=== PATIENT | female | born 1940 | race Caucasian/White ===

== ENCOUNTER 2018-03-17 07:16 | Day surgery (SDC) | payer MEDICARE, OTHER ==
[~2018-03-17 07:16] MED LIST: Midazolam 1 MG/ML 2 ML SDV ONE; fentaNYL 100 MCG/2 ML SDV ONE
[2018-03-17] MEDS ORDERED: Midazolam 1 MG/ML 2 ML SDV IV ONE ×5 (07:17→08:50)
[2018-03-17] MEDS ORDERED: fentaNYL 100 MCG/2 ML SDV IV ONE ×3 (07:17→08:43)
[2018-03-17] MEDS ORDERED: Dextrose 5%-0.45% NaCl 1,000 ML IV SCH (08:00)
--- NOTE | 2018-03-17 09:37 | OR ---
DATE: 03/17/2018 PROCEDURES: Total colonoscopy, narrow-band imaging, and multiple cold snare polypectomies. INSTRUMENT USED: PCF-H180 AL Olympus video colonoscope. PREMEDICATIONS: Fentanyl 100 mcg intravenous, Versed 3 mg intravenous. Nasal O2 cannula. The procedure was done under pulse oximetry, BP recording, and diagnostic cardiac sonographer. INDICATION: The patient with previous colonic polyps and recent rectal bleeding. Colonoscopic examination is done for detection of any polypoid lesions and removal, endoscopic hemostasis therapy if needed. DESCRIPTION OF PROCEDURE: Initial rectal exam showed external hemorrhoidal tags. Rigid anoscopy was normal. The colonoscope was passed with ease. Numerous scattered diverticula were noted in the distal left colon along with deformity. The scope was passed with ease up to the ileocecal area. Photographs were taken of the cecum showing 3-mm sized benign-appearing polyp. NBI views were obtained. Cold snare polypectomy was done. The tissue was retrieved and sent for histopathology. No bleeding was noted from any of the visualized areas at the commencement of the examination. No stricture. No vascular ectasia. No large isolated ulcerations seen. No evidence of diffuse inflammatory bowel disease in the form of friability, contact bleeding, or ulcerations. Probing the proximal sides of folds and flexures, using adequate distention and clearing up the stool material, withdrawal of the scope was made. In the distal ascending colon, multiple 3-mm sized polyps, three in number, were noted. Cold snare polypectomies were done. The tissues were retrieved and sent for histopathology. No bleeding was noted from any of the visualized areas at the completion of examination. IMPRESSION: 1. External hemorrhoids. 2. Diverticulosis. 3. Multiple colonic polyps. The patient tolerated the procedure well. [facility] /[id number]
== END 2018-03-17 11:15 | disposition home or self-care (01) ==
LOC: DL.ENDO 07:16
PROVIDERS: ATTEND Internal Medicine Gastroenterology
DX: D12.0 Benign neoplasm of cecum (principal); D12.4 Benign neoplasm of descending colon; K64.4 Residual hemorrhoidal skin tags; K57.30 Diverticulosis of large intestine without perforation or abscess without bleeding; I10 Essential (primary) hypertension; I25.10 Atherosclerotic heart disease of native coronary artery without angina pectoris; E11.9 Type 2 diabetes mellitus without complications; E78.5 Hyperlipidemia, unspecified; E66.09 Other obesity due to excess calories; Z86.010 Personal history of colon polyps
CPT/HCPCS: 45385; J2250; J3010; J7042; 88305

== ENCOUNTER 2022-03-24 13:13 | Inpatient (IN) | payer MEDICARE, OTHER ==
[2022-03-24] MEDS: Sodium Chloride 0.9% 10 ML Syringe FLUSH PRN (13:56)
[2022-03-24 14:26] LABS: ANION GAP 15.2 mEq/L (7-13); CHLORIDE,CL 103 mmol/L (98-107); SODIUM,NA 141 mmol/L (136-145)
[2022-03-24] MEDS ORDERED: Iopamidol 612 MG/ML 100 ML Bottle IVPUSH ONE (14:39)
[2022-03-24] MEDS ORDERED: cefTRIAXone 2 GM in Sodium Chloride 0.9% 100 ML IV ONE (15:40)
[2022-03-24] MEDS ORDERED: Dexamethasone 4 MG/ML SDV IVPUSH ONE (17:16)
[2022-03-24] MEDS ORDERED: Ibuprofen 400 MG Tab PO PRN (19:37)
[2022-03-24] MEDS ORDERED: Zolpidem 5 MG Tab PO PRN (19:37)
[2022-03-24] MEDS ORDERED: HYDROmorphone 0.5 MG/0.5 ML Syringe IVPUSH PRN (19:37)
[2022-03-24] MEDS ORDERED: Polyethylene Glycol 3350 Powder 17 GM Packet PO PRN (19:37)
[2022-03-24] MEDS ORDERED: Ketorolac 30 MG/ML SDV IVPUSH PRN (19:37)
[2022-03-24] MEDS ORDERED: Ondansetron 4 MG/2 ML SDV IVPUSH PRN (19:37)
[2022-03-24] MEDS ORDERED: Magnesium Hydroxide 400 MG/5 ML Susp 30 ML Cup PO PRN (19:37)
[2022-03-24] MEDS ORDERED: Albuterol/Ipratropium 3.0-0.5 MG/3 ML Neb Soln NEB PRN (19:37)
[2022-03-24] MEDS ORDERED: Bisacodyl 5 MG Tab PO PRN (19:37)
[2022-03-24] MEDS ORDERED: Docusate Sodium 100 MG Cap PO PRN (19:37)
[2022-03-24] MEDS ORDERED: metroNIDAZOLE/Normal Saline 500 MG in Premix Bag 100 BAG IV SCH (20:00)
[2022-03-24] MEDS: Dextrose 5%-0.9% NaCl 1,000 ML IV SCH (21:13)
[2022-03-24] MEDS: Saccharomyces Boulardii (Probiotic) 250 MG Cap PO SCH (21:20)
[2022-03-24] MEDS ORDERED: Escitalopram 10 MG Tab PO SCH (21:35)
[2022-03-25] MEDS: metroNIDAZOLE/Normal Saline 500 MG in Premix Bag 1 BAG IV SCH ×3 (06:04→22:02)
[2022-03-25 07:13] LABS: ANION GAP 15.2 mEq/L (7-13); CHLORIDE,CL 106 mmol/L (98-107); SODIUM,NA 142 mmol/L (136-145)
[2022-03-25] MEDS ORDERED: Benzocaine 20% Topical Spray UD MUCMEM PRN (09:05)
[2022-03-25] MEDS: Dexamethasone 4 MG/ML SDV IVPUSH SCH ×3 (09:53→23:14)
[2022-03-25] MEDS: Dextrose 5%-0.9% NaCl 1,000 ML IV SCH (09:56)
[2022-03-25] MEDS: cefTRIAXone 1 GM in Sodium Chloride 0.9% 50 ML IV SCH ×2 (09:57→21:27)
[2022-03-25] MEDS: Saccharomyces Boulardii (Probiotic) 250 MG Cap PO SCH ×2 (10:00→21:28)
[2022-03-25] MEDS ORDERED: Lidocaine 2% Jelly 10 ML Urojet MUCMEM ONE (16:51)
[2022-03-25] MEDS: Simvastatin 10 MG Tab PO SCH (21:28)
[2022-03-25] MEDS: Escitalopram 10 MG Tab PO SCH (21:28)
[2022-03-26] MEDS: metroNIDAZOLE/Normal Saline 500 MG in Premix Bag 1 BAG IV SCH ×3 (05:33→21:41)
[2022-03-26 06:55] LABS: ANION GAP 12.1 mEq/L (7-13); CHLORIDE,CL 108 mmol/L (98-107); SODIUM,NA 141 mmol/L (136-145)
[2022-03-26] MEDS: Dexamethasone 4 MG/ML SDV IVPUSH SCH ×3 (08:25→21:13)
[2022-03-26] MEDS: Aspirin 81 MG Tab.Chew PO SCH (08:28)
[2022-03-26] MEDS: Clopidogrel 75 MG Tab PO SCH (08:29)
[2022-03-26] MEDS: Saccharomyces Boulardii (Probiotic) 250 MG Cap PO SCH ×2 (08:29→21:13)
[2022-03-26] MEDS: amLODIPine 5 MG Tab PO SCH (08:30)
[2022-03-26] MEDS: Metoprolol Succinate 50 MG Tab.ER PO SCH (08:30)
[2022-03-26] MEDS: cefTRIAXone 1 GM in Sodium Chloride 0.9% 50 ML IV SCH ×2 (08:32→21:12)
[2022-03-26] MEDS: Sodium Chloride 0.9% 10 ML Syringe FLUSH PRN ×2 (14:28→21:12)
[2022-03-26] MEDS: Heparin Sodium 5,000 Units/ML Vial SUBCUT SCH ×2 (14:38→21:14)
[2022-03-26] MEDS: Escitalopram 10 MG Tab PO SCH (21:13)
[2022-03-26] MEDS: Simvastatin 10 MG Tab PO SCH (21:14)
[2022-03-27] MEDS: metroNIDAZOLE/Normal Saline 500 MG in Premix Bag 1 BAG IV SCH (05:12)
[2022-03-27] MEDS: Heparin Sodium 5,000 Units/ML Vial SUBCUT SCH (05:13)
[2022-03-27 07:07] LABS: ANION GAP 14.2 mEq/L (7-13); CHLORIDE,CL 109 mmol/L (98-107); SODIUM,NA 145 mmol/L (136-145)
[2022-03-27] MEDS: Aspirin 81 MG Tab.Chew PO SCH (09:21)
[2022-03-27] MEDS: Saccharomyces Boulardii (Probiotic) 250 MG Cap PO SCH (09:22)
[2022-03-27] MEDS: Dexamethasone 4 MG/ML SDV IVPUSH SCH (09:22)
[2022-03-27] MEDS: amLODIPine 5 MG Tab PO SCH (09:28)
[2022-03-27] MEDS: cefTRIAXone 1 GM in Sodium Chloride 0.9% 50 ML IV SCH (09:28)
[2022-03-27] MEDS: Metoprolol Succinate 50 MG Tab.ER PO SCH (09:29)
[2022-03-27] MEDS: Clopidogrel 75 MG Tab PO SCH (09:29)
== END 2022-03-27 10:55 | disposition home or self-care (01) | DRG 153 ==
LOC: DL.ED 13:13 → DL.MS 17:21 → DL.ED 18:05
PROVIDERS: ADMIT Internal Medicine; ATTEND Internal Medicine
DX: J36 Peritonsillar abscess (principal); H54.7 Unspecified visual loss; E78.00 Pure hypercholesterolemia, unspecified; I10 Essential (primary) hypertension; I25.10 Atherosclerotic heart disease of native coronary artery without angina pectoris; E78.5 Hyperlipidemia, unspecified; E11.9 Type 2 diabetes mellitus without complications; I35.0 Nonrheumatic aortic (valve) stenosis; F32.A Depression, unspecified; E66.9 Obesity, unspecified; Z88.8 Allergy status to other drugs, medicaments and biological substances; G89.29 Other chronic pain; M54.9 Dorsalgia, unspecified; G51.0 Bell's palsy; E61.1 Iron deficiency; Z20.822 Contact with and (suspected) exposure to COVID-19; E11.65 Type 2 diabetes mellitus with hyperglycemia; Z79.82 Long term (current) use of aspirin; Z79.02 Long term (current) use of antithrombotics/antiplatelets; Z79.84 Long term (current) use of oral hypoglycemic drugs; Z79.899 Other long term (current) drug therapy; Z79.01 Long term (current) use of anticoagulants; Z95.2 Presence of prosthetic heart valve; Z88.0 Allergy status to penicillin; Z88.5 Allergy status to narcotic agent; Z86.010 Personal history of colon polyps; Z87.440 Personal history of urinary (tract) infections; Z86.19 Personal history of other infectious and parasitic diseases; Z68.34 Body mass index [BMI] 34.0-34.9, adult
CPT/HCPCS: 36415; 70491; 80053; 83735; 85025; 85610; 86140; 87040; 87081; 87430; 96365; 99284; 99285-25; A9270-GY; J0696; J1100; J1885; J3490; J7042; Q9967; U0002

== ENCOUNTER 2024-06-20 10:03 | Emergency (ER) | payer MEDICARE, OTHER ==
[2024-06-20] MEDS ORDERED: Sodium Chloride 0.9% 10 ML Syringe FLUSH PRN (10:11)
[2024-06-20] MEDS: Iopamidol 755 Mg/ML 100 ML Bottle IVPUSH ONE (10:20)
[2024-06-20 10:24] LABS: BASOPHILS PERCENT AUTO 0.3 % (0.0-1.0); HEMATOCRIT 44.8 % (37.0-47.0); HEMOGLOBIN 14.1 g/dL (12.0-16.0); LYMPHOCYTES PERCENT AUTO 11.8 % (20.5-50.1); MEAN CORPUSCULAR HEMOGLOBIN 28.8 pg (27.0-34.0); MEAN CORPUSCULAR HGB CONC 31.5 g/dL (33.0-35.0); MEAN CORPUSCULAR VOLUME 91.6 fL (80-100); MONOCYTES PERCENT AUTO 2.8 % (2-8); NEUTROPHILS PERCENT AUTO 85.1 % (42.2-75.2); PLATELET COUNT,PLT 173 10^3/uL (150-450); RED BLOOD CELL COUNT 4.89 10^6/uL (4.2-5.4)
[2024-06-20 10:42] LABS: INR 1.1 (0.9-1.2); PROTHROMBIN TIME 11.5 SEC (9.0-12.0); PTT,PARTIAL THROMBOPLSTIN TIME 23.4 SEC (22.0-34.0)
[2024-06-20 10:47] LABS: ALBUMIN 3.9 g/dL (3.4-5.0); ANION GAP 14.2 mEq/L (7-13); BUN/CREATININE RATIO 22.6 (No establ ref range); CALCIUM 9.5 mg/dL (8.5-10.1); CREATININE 0.93 mg/dL (0.55-1.02); EST CRCL DRUG DOSING (CG) 38.88 mL/min; POTASSIUM,K 4.2 mmol/L (3.5-5.1); PROTEIN TOTAL,TP 7.8 g/dL (6.4-8.2)
[2024-06-20 11:04] LABS: APPEARANCE,URINE SLIGHTLY CLOUDY (CLEAR); BILIRUBIN,URINE NEGATIVE (NEGATIVE); COLOR,URINE YELLOW (YELLOW); GLUCOSE,URINE NEGATIVE (NEGATIVE); KETONES,URINE 15 (NEGATIVE); LEUKOCYTE ESTERASE,URINE TRACE (NEGATIVE); NITRITE,URINE POSITIVE (NEGATIVE); OCCULT BLOOD,URINE TRACE-INTACT (NEGATIVE); PH,URINE 6.5 (5.0-9.0); PROTEIN,URINE TRACE (NEGATIVE); UROBILINOGEN,URINE 0.2 mg/dL (0.2-1.0)
[2024-06-20 11:14] LABS: WBC,URINE 50-75 /HPF (0-5/HPF)
[2024-06-20 11:15] LABS: BACTERIA,URINE MANY /HPF (0-FEW/HPF); EPITHELIAL CELLS,URINE FEW /HPF (NOT SEEN); MUCUS,URINE FEW /LPF (NOT SEEN)
[2024-06-20] MEDS: Levofloxacin/Dextrose 5%-Water 500 MG in Premix Bag 1 BAG IV ONE (12:10)
== END 2024-06-20 13:25 ==
LOC: DL.ED 10:03
DX: N30.00 Acute cystitis without hematuria (principal); R47.01 Aphasia; E78.00 Pure hypercholesterolemia, unspecified; I10 Essential (primary) hypertension; E11.9 Type 2 diabetes mellitus without complications; E66.9 Obesity, unspecified; Z68.29 Body mass index [BMI] 29.0-29.9, adult; Z79.899 Other long term (current) drug therapy; Z79.82 Long term (current) use of aspirin; Z88.0 Allergy status to penicillin; Z88.8 Allergy status to other drugs, medicaments and biological substances
CPT/HCPCS: 36415; 51702; 70450; 70496; 70498; 80053; 81001; 82947; 84484; 85025; 85610; 85730; 87040; 87086; 87088; 87186; 87804; 93005; 96365; 99285-25; J1956; Q9967; U0002

== ENCOUNTER 2024-08-05 18:27 | Emergency (ER) | payer MEDICARE, OTHER ==
[2024-08-05 19:11] LABS: APPEARANCE,URINE SLIGHTLY CLOUDY (CLEAR); BILIRUBIN,URINE NEGATIVE (NEGATIVE); COLOR,URINE YELLOW (YELLOW); GLUCOSE,URINE NEGATIVE (NEGATIVE); KETONES,URINE NEGATIVE (NEGATIVE); LEUKOCYTE ESTERASE,URINE MODERATE (NEGATIVE); NITRITE,URINE POSITIVE (NEGATIVE); OCCULT BLOOD,URINE NEGATIVE (NEGATIVE); PH,URINE 7.5 (5.0-9.0); PROTEIN,URINE NEGATIVE (NEGATIVE); UROBILINOGEN,URINE 0.2 mg/dL (0.2-1.0)
[2024-08-05 19:34] LABS: BACTERIA,URINE MANY /HPF (0-FEW/HPF); EPITHELIAL CELLS,URINE FEW /HPF (NOT SEEN); MUCUS,URINE FEW /LPF (NOT SEEN); RBC,URINE 0-5 /HPF (0-5); WBC,URINE >100 /HPF (0-5/HPF)
[2024-08-05] MEDS: cefTRIAXone 1 GM, Lidocaine 1% 2.1 ML IM ONE (19:52)
[2024-08-05] MEDS: cefTRIAXone 1 GM Vial ONE (19:54)
== END 2024-08-05 19:58 | disposition home or self-care (01) ==
LOC: DL.ED 18:27
DX: N39.0 Urinary tract infection, site not specified (principal); I10 Essential (primary) hypertension; E78.00 Pure hypercholesterolemia, unspecified; E11.9 Type 2 diabetes mellitus without complications; E66.9 Obesity, unspecified; Z68.31 Body mass index [BMI] 31.0-31.9, adult; Z79.899 Other long term (current) drug therapy; Z79.2 Long term (current) use of antibiotics; Z79.82 Long term (current) use of aspirin; Z88.8 Allergy status to other drugs, medicaments and biological substances; Z88.0 Allergy status to penicillin
CPT/HCPCS: 81001; 87086; 87088; 87186; 99283; J0696; J3490

== ENCOUNTER 2024-09-01 10:43 | Emergency (ER) | payer MEDICARE, OTHER ==
[2024-09-01] MEDS ORDERED: Sodium Chloride 0.9% 10 ML Syringe FLUSH PRN (10:58)
[2024-09-01 11:19] LABS: BASOPHILS PERCENT AUTO 0.3 % (0.0-1.0); EOSINOPHILS PERCENT AUTO 0.2 % (1.0-3.0); HEMATOCRIT 36.3 % (37.0-47.0); HEMOGLOBIN 11.4 g/dL (12.0-16.0); LYMPHOCYTES PERCENT AUTO 10.4 % (20.5-50.1); MEAN CORPUSCULAR HEMOGLOBIN 29.4 pg (27.0-34.0); MEAN CORPUSCULAR HGB CONC 31.4 g/dL (33.0-35.0); MEAN CORPUSCULAR VOLUME 93.6 fL (80-100); MONOCYTES PERCENT AUTO 6.2 % (2-8); NEUTROPHILS PERCENT AUTO 82.9 % (42.2-75.2); PLATELET COUNT,PLT 193 10^3/uL (150-450); RED BLOOD CELL COUNT 3.88 10^6/uL (4.2-5.4); WHITE BLOOD CELL COUNT,WBC 11.8 10^3/uL (5.0-10.0)
[2024-09-01 11:19] LABS: APPEARANCE,URINE CLEAR (CLEAR); BILIRUBIN,URINE NEGATIVE (NEGATIVE); COLOR,URINE YELLOW (YELLOW); GLUCOSE,URINE NEGATIVE (NEGATIVE); KETONES,URINE NEGATIVE (NEGATIVE); LEUKOCYTE ESTERASE,URINE TRACE (NEGATIVE); NITRITE,URINE NEGATIVE (NEGATIVE); OCCULT BLOOD,URINE NEGATIVE (NEGATIVE); PROTEIN,URINE TRACE (NEGATIVE)
[2024-09-01 11:29] LABS: BACTERIA,URINE FEW /HPF (0-FEW/HPF); EPITHELIAL CELLS,URINE FEW /HPF (NOT SEEN); MUCUS,URINE FEW /LPF (NOT SEEN); RBC,URINE 0-5 /HPF (0-5)
[2024-09-01] MEDS: Iopamidol 612 MG/ML 100 ML Bottle IVPUSH ONE (11:33)
[2024-09-01 11:39] LABS: A/G RATIO 0.89; ALBUMIN 3.2 g/dL (3.4-5.0); ANION GAP 14.9 mEq/L (7-13); BILIRUBIN TOTAL 0.7 mg/dL (0.2-1.0); BUN/CREATININE RATIO 28.8 (No establ ref range); CALCIUM 9.4 mg/dL (8.5-10.1); CREATININE 0.8 mg/dL (0.55-1.02); EST CRCL DRUG DOSING (CG) 43.3 mL/min; POTASSIUM,K 3.9 mmol/L (3.5-5.1); PROTEIN TOTAL,TP 6.8 g/dL (6.4-8.2)
[2024-09-01 11:44] LABS: PROTHROMBIN TIME 10.6 SEC (9.0-12.0); PTT,PARTIAL THROMBOPLSTIN TIME 23.6 SEC (22.0-34.0)
[2024-09-01 11:45] LABS: LACTIC ACID 2.1 mmol/L (0.4-2.0)
[2024-09-01] MEDS ORDERED: Naloxone 2 MG/2 ML Syringe IVPUSH PRN (12:32)
[2024-09-01] MEDS: Sodium Chloride 0.9% 500 ML IV ONE (12:33)
[2024-09-01] MEDS: Morphine 2 MG/ML SYRINGE IVPUSH ONE (12:36)
[2024-09-01] MEDS: Sodium Chloride 0.9% 1,000 ML IV STA (13:53)
== END 2024-09-01 14:07 ==
LOC: DL.ED 10:43
DX: S42.201A Unspecified fracture of upper end of right humerus, initial encounter for closed fracture (principal); D69.1 Qualitative platelet defects; I10 Essential (primary) hypertension; E78.00 Pure hypercholesterolemia, unspecified; E66.9 Obesity, unspecified; E11.9 Type 2 diabetes mellitus without complications; Z68.30 Body mass index [BMI] 30.0-30.9, adult; Z88.0 Allergy status to penicillin; Z88.8 Allergy status to other drugs, medicaments and biological substances; Z79.82 Long term (current) use of aspirin; Z79.84 Long term (current) use of oral hypoglycemic drugs; Z79.899 Other long term (current) drug therapy; W19.XXXA Unspecified fall, initial encounter
CPT/HCPCS: 36415; 70450; 71260; 72125; 73000; 73030; 73060; 73562; 74177; 80053; 81001; 83605; 85025; 85610; 85730; 87086; 87088; 87186; 96374; 99285; J2270; J7030; Q9967

== ENCOUNTER 2024-09-21 16:21 | Emergency (ER) | payer MEDICARE, OTHER ==
[2024-09-21 17:05] LABS: APPEARANCE,URINE CLEAR (CLEAR); BILIRUBIN,URINE NEGATIVE (NEGATIVE); COLOR,URINE YELLOW (YELLOW); GLUCOSE,URINE NEGATIVE (NEGATIVE); KETONES,URINE NEGATIVE (NEGATIVE); LEUKOCYTE ESTERASE,URINE SMALL (NEGATIVE); NITRITE,URINE NEGATIVE (NEGATIVE); OCCULT BLOOD,URINE NEGATIVE (NEGATIVE); PROTEIN,URINE NEGATIVE (NEGATIVE); UROBILINOGEN,URINE 0.2 mg/dL (0.2-1.0)
[2024-09-21 17:22] LABS: BACTERIA,URINE MODERATE /HPF (0-FEW/HPF); EPITHELIAL CELLS,URINE FEW /HPF (NOT SEEN); MUCUS,URINE MODERATE /LPF (NOT SEEN); RBC,URINE 0-5 /HPF (0-5); WBC,URINE 20-30 /HPF (0-5/HPF)
[2024-09-21] MEDS: cefTRIAXone 1 GM, Lidocaine 1% 2.1 ML IM ONE (18:08)
== END 2024-09-21 18:12 | disposition home or self-care (01) ==
LOC: DL.ED 16:21
DX: N30.00 Acute cystitis without hematuria (principal); I10 Essential (primary) hypertension; E78.00 Pure hypercholesterolemia, unspecified; E11.9 Type 2 diabetes mellitus without complications; E66.9 Obesity, unspecified; Z79.82 Long term (current) use of aspirin; Z79.899 Other long term (current) drug therapy; Z79.84 Long term (current) use of oral hypoglycemic drugs; Z79.2 Long term (current) use of antibiotics; Z88.0 Allergy status to penicillin; Z88.8 Allergy status to other drugs, medicaments and biological substances
CPT/HCPCS: 81001; 96372; 99284; J0696; J3490

== ENCOUNTER 2024-10-24 09:34 | Emergency (ER) | payer MEDICARE, OTHER ==
[2024-10-24 09:55] LABS: APPEARANCE,URINE CLEAR (CLEAR); BILIRUBIN,URINE NEGATIVE (NEGATIVE); GLUCOSE,URINE 250 (NEGATIVE); KETONES,URINE NEGATIVE (NEGATIVE); LEUKOCYTE ESTERASE,URINE NEGATIVE (NEGATIVE); NITRITE,URINE POSITIVE (NEGATIVE); OCCULT BLOOD,URINE NEGATIVE (NEGATIVE); PROTEIN,URINE 30 (NEGATIVE)
[2024-10-24 10:00] LABS: COLOR,URINE ORANGE (YELLOW)
[2024-10-24 10:05] LABS: BACTERIA,URINE FEW /HPF (0-FEW/HPF); EPITHELIAL CELLS,URINE FEW /HPF (NOT SEEN); MUCUS,URINE MODERATE /LPF (NOT SEEN); RBC,URINE 0-5 /HPF (0-5); WBC,URINE 0-5 /HPF (0-5/HPF)
[2024-10-24] MEDS: Take Home: Cephalexin 500 MG Cap, 6 Cap Pack PO ONE (10:28)
[2024-10-24] MEDS ORDERED: Take Home: Cephalexin 500 MG Cap, 6 Cap Pack PO ONE (10:30)
== END 2024-10-24 10:43 | disposition home or self-care (01) ==
LOC: DL.ED 09:34
DX: N39.0 Urinary tract infection, site not specified (principal); I10 Essential (primary) hypertension; E78.00 Pure hypercholesterolemia, unspecified; E11.9 Type 2 diabetes mellitus without complications; E66.9 Obesity, unspecified; Z88.0 Allergy status to penicillin; Z88.8 Allergy status to other drugs, medicaments and biological substances; Z79.82 Long term (current) use of aspirin; Z79.84 Long term (current) use of oral hypoglycemic drugs; Z79.899 Other long term (current) drug therapy
CPT/HCPCS: 81001; 82947; 99283; A9270